=== PATIENT | female | born 1960 | race Caucasian/White ===

== ENCOUNTER → 2016-05-25 | Outpatient (CLI) | payer MEDICARE ==
[~2016-05-25] MED LIST: ACTOS 15MG TABL15 MG PO; AMARYL 4MG. TAB4 MG PO; CENTRUM SILVER1 TA1 PO; CITALOPRAM20 MG PO; DOS PO; ECOTRIN325 MG PO; ECOTRIN81 MG PO; FISH OIL CONCEN1 SGL PO; GEMFIBROZIL600 MG PO; GLIMEPIRIDE 2MG2 MG PO; GLIMEPIRIDE 4MG4 MG PO; HYDROCHLOROTHIA25 M1 PO; JANUVIA25 MG PO; LISINOPRIL 5MG T5 MG PO; LOPRESSOR 25MG.25 MG PO; LOPRESSOR 50 MG50 MG PO; METFORMIN1000 MG PO; METFORMIN500 MG PO; METOCLOPRAMIDE10 MG PO; METOPROLOL TART50 MG PO; NITROGLYCERIN0.4 MG SL; NITROQUICK0.3 MG SL; OMEPRAZOLE20 MG PO; PRILOSEC20 M1 PO; PRILOSEC40 MG PO; SENOKOT TABLET1 EACH PO; SIMVASTATIN40 MG PO; SIMVASTATIN80 MG PO; TOPROL XL 25MG25 MG PO; VEGETABLE PO; VISTARIL25 MG PO; VITAMIN E1000 IU PO
--- NOTE | 2016-05-29 07:50 | RADIOLOGY REPORT PS360 ---
DIG MAMM-SCREEN PRAKASH W/CAD CAD Screening COMPARISON: Digital mammograms 04/05/2014 and 04/11/2015 INDICATION: There is a history of breast cancer in patient's mother diagnosed after menopause. TECHNIQUE: Standard CC and MLO images were obtained. R2 CAD reviewed. FINDINGS: Moderate diffuse fibroglandular densities are seen throughout both breast. Again noted is a benign-appearing nodular density upper outer quadrant right breast. There is a stable benign-appearing calcification left breast. There is no new or suspicious lesion in either breast and there are no suspicious microcalcifications. Stable small nodes in both axilla. IMPRESSION: Stable exam with fibrofatty parenchyma and no suspicious lesion seen recommend yearly follow-up BI-RADS CATEGORY: 2_Benign RECOMMENDED FOLLOWUP: 12M 12 MONTH FOLLOW-UP (A letter has been sent to the patient regarding results of the study.)
== END ==
LOC: RAD 09:11
DX: Z12.31 Encounter for screening mammogram for malignant neoplasm of breast (principal); Z01.419 Encounter for gynecological examination (general) (routine) without abnormal findings
CPT/HCPCS: G0202

== ENCOUNTER → 2016-12-13 | Outpatient (CLI) | payer MEDICARE ==
--- NOTE | 2016-12-13 12:25 | RADIOLOGY REPORT PS360 ---
KNEE-4 OR 5 VIEWS-LT HISTORY: LEFT KNEE PAIN ORDERING PHYSICIAN: Celestino Garcia MD PATIENT AGE: 56 years COMPARISON: None FINDINGS: Weightbearing views are performed No fracture or dislocation. No lytic or blastic change. Normal mineralization. No significant arthritic changes evident. No other significant findings IMPRESSION: Negative left Knee
== END ==
LOC: RAD 09:14
DX: M25.562 Pain in left knee (principal)